=== PATIENT | male | born 1945 | race Asian ===

== ENCOUNTER 2016-10-08 18:12 | Emergency (ER) | payer BC, OTHER ==
[~2016-10-08] VITALS: Ht 167.6 cm; Wt 78.0 kg
[2016-10-08 18:16] VITALS: BP 143/83; PULSE 77; RESP 18; TEMP 98.3; O2SAT 99
--- NOTE | 2016-10-08 18:20 | NUR ---
Pt triaged and returned to waiting room on stable condition, Chest X-ray ordered for L intercostal pain.
--- NOTE | 2016-10-08 19:45 | NUR ---
Placed in room 08 . Placed on distributor cleaner, blood pressure machine and pulse oximeter. To gown for exam. Side rails up. Report given to GOLDY Castillo.
--- NOTE | 2016-10-08 19:50 | NUR ---
Patient AAO x4, sitting in bed, c/o left rib pain 12/03 post fall 1 week ago, patient states that the pain was getting better but then he developed a cough and the rib pain became more painful since yesterday. Denies N/V/D, Minor shortness of breath on deep inhalation. Denies cardiac chest pain, no acute distress noted. Will continue to monitor.
--- NOTE | 2016-10-08 20:31 | NUR ---
PATRICIA POLLOCK at bedside examining patient.
[2016-10-08 20:48] VITALS: BP 135/80; PULSE 70; RESP 18; TEMP 98.3; O2SAT 99
--- NOTE | 2016-10-08 20:48 | NUR ---
Patient given written and verbal discharge instructions and verbalizes understanding. ER MD discussed with patient the results and treatment provided. Patient in stable condition. ID arm band removed. Rx of [place] and mobic given. Patient educated on pain management and to follow up with PMD. Pain Scale 0/10 . Opportunity for questions provided and answered.
== END 2016-10-08 20:48 | disposition home or self-care (01) ==
LOC: SED 18:12
DX: M94.0 Chondrocostal junction syndrome [Tietze] (principal); I10 Essential (primary) hypertension; E11.9 Type 2 diabetes mellitus without complications; Z86.79 Personal history of other diseases of the circulatory system
CPT/HCPCS: 71020-TC; 99284

== ENCOUNTER 2023-01-01 10:06 | Emergency (ER) | payer BC, OTHER ==
[~2023-01-01] VITALS: Ht 170.2 cm; Wt 77.1 kg
--- NOTE | 2023-01-01 10:15 | NUR ---
Placed in waiting room . Placed on ekg monitor tech, blood pressure machine and pulse oximeter. To gown for exam. Side rails up.
--- NOTE | 2023-01-01 10:15 | NUR ---
ER at bedside examining patient.
[2023-01-01 10:36] VITALS: BP_SYST 130
--- NOTE | 2023-01-01 10:41 | NUR ---
Pt from home C/O chyest wall pain Hx of DM, HTN, cardiac disorders VSS Able to make needs known NAD at this time Will continue to monitor
--- NOTE | 2023-01-01 11:00 | NUR ---
PT BIB SELD AWAKE AND ALERT AOX4, NO SOB . PT C/O PAIN TO CHEST. PT STATED HE HAD A MECHANICAL FALL X5 DAYS AGO AT HOME. PT DENIES N/V. PT HAS HX OF HTN, DM2, HLD.
[2023-01-01] MEDS ORDERED: PERC10 PO (13:39)
--- NOTE | 2023-01-01 13:50 | NUR ---
Patient given written and verbal discharge instructions and verbalizes understanding. ER MD DR QUILES discussed with patient the results and treatment provided. Patient in stable condition. ID arm band removed. Rx of [place] given. Patient educated on pain management and to follow up with PMD. Pain Scale . Opportunity for questions provided and answered. Medication side effect fact sheet provided.
[2023-01-01 14:18] VITALS: BP_SYST 136
== END 2023-01-01 13:50 | disposition home or self-care (01) ==
LOC: SED 10:06
DX: S22.32XA Fracture of one rib, left side, initial encounter for closed fracture (principal); E11.9 Type 2 diabetes mellitus without complications; I10 Essential (primary) hypertension; Z79.899 Other long term (current) drug therapy; W18.40XA Slipping, tripping and stumbling without falling, unspecified, initial encounter; Y93.89 Activity, other specified; Y92.89 Other specified places as the place of occurrence of the external cause; Y99.8 Other external cause status
CPT/HCPCS: 71045; 71100; 71250-TC; 76376; 93005; 99284